=== PATIENT | male | born 1940 | race Caucasian/White ===

== ENCOUNTER 2024-03-31 13:15 | Outpatient (CLI) | payer MEDICARE, SELFPAY | END 2024-03-31 13:16 | disposition home or self-care (01) | LOC: AMB 04-17 22:27 | PROVIDERS: PCP Internal Medicine; Visit Provider Emergency Medicine Emergency Medical Services | DX: I61.9 Nontraumatic intracerebral hemorrhage, unspecified (principal) | CPT/HCPCS: A0425; A0427 ==